=== PATIENT | male | born 2000 | race Two or more races ===

== ENCOUNTER 2024-06-08 10:57 | Emergency (ER) | payer OTHER, SELFPAY ==
[2024-06-08 11:04] VITALS: BP 140/77; PULSE 104; RESP 18; TEMP 36.3; O2SAT 98
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
== END 2024-06-08 12:30 | disposition home or self-care (01) ==
PROVIDERS: Emergency Provider Family Medicine
DX: M79.652 Pain in left thigh (principal); M54.9 Dorsalgia, unspecified
CPT/HCPCS: 71101; 73552; 99283; 99284